=== PATIENT | female | born 1980 | race African-American/Black ===

== ENCOUNTER 2019-04-25 18:25 | Emergency (ER) | payer OTHER ==
[~2019-04-25] VITALS: Ht 162.6 cm; Wt 90.7 kg
[~2019-04-25 18:25] MED LIST: TRAM50TA PO
[2019-04-25 18:57] VITALS: BP 170/52
[2019-04-25] MEDS ORDERED: ORPH100T PO (20:20)
[2019-04-25] MEDS ORDERED: METH4TAB2 PO (20:20)
[2019-04-25] MEDS ORDERED: IBUP-1007 PO (20:20)
[2019-04-25] MEDS ORDERED: HYDR-3164 PO (20:20)
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
== END 2019-04-25 20:33 | disposition home or self-care (01) ==
LOC: ER 18:25
DX: M54.2 Cervicalgia (principal); G89.11 Acute pain due to trauma; M54.6 Pain in thoracic spine; V47.5XXA Car driver injured in collision with fixed or stationary object in traffic accident, initial encounter; Y93.89 Activity, other specified; Y92.488 Other paved roadways as the place of occurrence of the external cause; Y99.8 Other external cause status
CPT/HCPCS: 99283